=== PATIENT | female | born 1940 | race Caucasian/White ===

== ENCOUNTER 2018-08-30 23:42 | Inpatient (IN) | payer OTHER ==
[~2018-08-30] VITALS: Ht 149.9 cm; Wt 65.6 kg
[~2018-08-30 23:42] MED LIST: ACETAMINOPHEN325 M1 PO; ADULT LOW DOSE81 MG PO; ALPRAZOLAM 0.50.5 M1 PO; ALPRAZOLAM PO; ASPIRIN EC81 M1 PO; ASPIRIN325 PO; CALCIUM 600 +1 EAC5 PO; CALCIUM LACTAT650 M1 PO; CALCIUM LACTATE PO; CARISOPRODOL350 MG PO; CARVEDILOL12.5 MG PO; CIPROFLOXACIN500 M3; CLOBETASOL PROP60 G1; CORTISONE57 GM TP; CREAM FOR RASH; CYMBALTA30 MG PO; DIABETA 1.25M1.25 M1 PO; DOXYCYCLINE 10100 M1 PO; DOXYCYCLINE 10100 MG PO; DURAGESIC1 EAC2 TRANSDERM; EFFIENT10 MG PO; ENDOCET 10-3251 EACH PO; FENTANYL PA50 MCG/HR TP; FENTANYL1 EAC1; FERROUS SULFAT325 M1 PO; FISH OIL 1,0001 EAC5 PO; FISH OIL 1,001000 M1 PO; GLUCOPHAGE500 MG PO; INDAPAMIDE2.5 MG; INDAPAMIDE2.5 MG PO; K-DUR10 MEQ PO; KLOR-CON 10 ER10 MEQ PO; LEVAQUIN 750 M750 MG PO; LOPRESSOR 50 MG50 M1 PO; LORTAB 5 MG/5001 TA1 PO; LOVASTAT20; LOVASTAT20 PO; MIRALAX255 GM PO; MISC; NASAL SPRAY30 ML NASAL; PERCOCET 10-321 EACH PO; PERCOCET 5-3251 EACH PO; SEE COMMENTS; SOMA PO; TOPROL XL25 MG PO; VITAMIN D 5050000 I1 PO; XANAX 0.5 MG0.5 M1 PO; ZOCOR40 MG PO
[2018-08-30 23:43] VITALS: BP 195/75
[2018-08-30 23:55] LABS: ABSOLUTE NEUTROPHILS 5.5 thou/uL (1.4-8.2); BASOPHILS 0.6 % (0.0-2.0); EOSINOPHILS 2.8 % (0.0-3.0); HEMATOCRIT 35.2 % (37.0-47.0); HEMOGLOBIN 12.1 gm/dL (12.0-15.0); LYMPHOCYTES 30.2 % (24.0-44.0); MCH 31.6 pg (26.0-34.0); MCHC 34.3 g/dL (28.0-37.0); MCV 92.1 fL (80.0-100.0); MONOCYTES 7.4 % (1.0-8.0); PLATELET COUNT 349 thou/uL (150-400); RBC 3.83 mil/uL (4.20-5.00); RDW 13.9 % (10.5-14.5); WBC 9.4 thou/uL (4.0-11.0)
[2018-08-31] VITALS (15 sets, daily range): BP systolic 159–258; BP diastolic 52–105
[2018-08-31] MEDS ORDERED: TRAZODONE HCL50 MG PO (00:01)
[2018-08-31 00:05] LABS: ANION GAP 11 mmol/L (7-16); BUN 14 mg/dL (7-18); CALCIUM 8.8 mg/dL (8.5-10.1); CHLORIDE 105 mmol/L (98-107); CO2 24 mmol/L (21-32); CREATININE 0.6 mg/dL (0.6-1.0); GLUCOSE 170 mg/dL (74-106); POTASSIUM 3.2 mmol/L (3.5-5.1); SODIUM 140 mmol/L (136-145)
[2018-08-31 00:06] LABS: APTT 31.6 Seconds (24.5-32.8); PROTIME 10.4 Seconds (9.3-11.4)
[2018-08-31 00:15] LABS: ALBUMIN 3.2 g/dL (3.4-5.0); MAGNESIUM 1.4 mg/dL (1.8-2.4); SGOT 26 U/L (15-37); SGPT 22 U/L (30-65); TOTAL BILIRUBIN 0.3 mg/dL (<0.1-1.0); TOTAL PROTEIN 6.7 g/dL (6.4-8.2); TROPONIN-I <0.06 ng/mL (<0.06)
--- NOTE | 2018-08-31 05:16 | NUR ---
PT ARRIVED ON UNIT FROM ER AT 0130. ADMITTED WITH CHEST PAIN AND SHORTNESS OF AIR X3 DAYS--THOUGH SHORTNESS OF BREATH WITH EXERTION IS BASELINE. ALSO K WAS LOW WELL MAG AND BOTH WERE REPLACED IN ER. SHE DENIES CHEST PAIN UPON ARRIVING ON FLOOR. AMBULATING TO BATHROOM INDEPENDENTLY AND IS TOLERATING WELL. RESTING COMFORTABLY. NO NEEDS VOICED. CALL LIGHT WITHIN REACH. WILL CONTINUE TO PROVIDE FREQUENT OBSERVATION.
[2018-08-31 06:03] LABS: ANION GAP 13 mmol/L (7-16); BUN 10 mg/dL (7-18); CALCIUM 8.9 mg/dL (8.5-10.1); CHLORIDE 106 mmol/L (98-107); CHOLESTEROL 177 mg/dL (<200); CO2 25 mmol/L (21-32); CREATININE 0.6 mg/dL (0.6-1.0); GLUCOSE 175 mg/dL (74-106); HDL CHOLESTEROL 82 mg/dL (>40); LDL CHOLESTEROL 75 mg/dL (<100); MAGNESIUM 1.8 mg/dL (1.8-2.4); POTASSIUM 3.5 mmol/L (3.5-5.1); SODIUM 144 mmol/L (136-145); TC:HDL 2.2 Ratio (Not establshd); TRIGLYCERIDE 100 mg/dL (<150); VLDL 20 mg/dL (<40)
[2018-08-31 06:07] LABS: SERUM ASSESSMENT Clear
--- NOTE | 2018-08-31 08:27 | EKG ---
[place] [place] [address] ELECTROCARDIOGRAM REPORT Name: RAHEEL LAI Room #: 354-P ADM IN M.R.#: [id number] ������������������ Admission: 08/31/18 ������������������ Attend Phys: Ashwin Feng MD Discharge: ������������������ Date of : 42 Report #: [id number] ����������������������������������������������������������������� [id number] THIS REPORT FOR: //name// 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1940 Requested By: Alan Eugene Order Number: [id number] MD: Frantz Dickinson Measurements Intervals [place] Rate: 74 P: 81 W[place]: 173 QRS: -55 QRSD: 144 T: -7 QT: 451 QTc: 501 Interpretive Statements Sinus rhythm Biatrial enlargement RBBB and LAFB Left ventricular hypertrophy Artifact in lead(s) II,III,aVR,aVL,aVF,V1,V2,V4,V5,V6 No previous ECG available for comparison Electronically Signed On 08-31-2018 8:27:44 ASSET PROTECTION ASSOCIATE by Frantz Dickinson [email or web address] ��������������������������������������������� <ELECTRONICALLY SIGNED> ���������������������������������������� By: Frantz Dickinson MD ��������������������������������������������� 08/31/18 0827 [id number] rFantz Dickinson MD /EPI
--- NOTE | 2018-08-31 08:29 | EKG ---
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 : 1940 Requested By: Martha Barr Order Number: [id number] MD: Frantz Dickinson Measurements Intervals [place] Rate: 80 P: 58 NC: 152 QRS: -60 QRSD: 133 T: -15 QT: 461 QTc: 532 Interpretive Statements Sinus rhythm Probable left atrial enlargement RBBB and LAFB Left ventricular hypertrophy No previous ECG available for comparison Electronically Signed On 08-31-2018 8:29:49 DATA PROCESSING SUPERVISOR by Frantz Dickinson [email or web address] ��������������������������������������������� <ELECTRONICALLY SIGNED> ���������������������������������������� By: Frantz Dickinson MD ��������������������������������������������� 08/31/18 0829 D: [id number] 2 Frantz Dickinson MD /SURESH
--- NOTE | 2018-08-31 10:18 | 2DMMODE ---
[facility] [address] [place] [address] 2 D/M-MODE ECHOCARDIOGRAM Name: RAHEEL LAI Room #: 354-P ADM IN M.R.#: [id number] ������������� Admission: 08/31/18 ������������� Attend Phys: Ashwin Feng MD Discharge: ��� ������������� ��� Date of : 42 Date of Service: 08/31/18 1018 �� Report #: [id number] �������� ��������������������������������������������[id number] THIS REPORT FOR: //name// APPROVED REPORT Study performed: 08/31/2018 09:42:36 EXAM: Comprehensive 2D, Doppler, and color-flow Echocardiogram Patient Location: Echo lab Room #: 354 Status: routine BSA: 1.61 HR: 97 bpm BP: 196/79 mmHg Rhythm: NSR Other Information Study Quality: Adequate Indications Diabetes CAD Chest Pain Hypertension/HDD 2D Dimensions RVDd: 40.03 mm IVSd: 16.46 (7-11mm) LVOT Diam: 17.77 (18-24mm) LVDd: 41.09 mm PWd: 16.31 (7-11mm) Ascending Ao: 31.85 (22-36mm) LVDs: 23.64 (25-40mm) Aortic Root: 25.23 mm IVC: 18.00 mm Volumes Left Atrial Volume (Systole) Single Plane 4CH: 56.60 mL Single Plane 2CH: 64.92 mL LA ESV Index: 42.00 mL/m2 Aortic Valve AoV Peak Anshul.: 2.02 m/s AO Peak Gr.: 16.24 mmHg LVOT Max P.67 mmHg LVOT Max V: 1.47 m/s CHRISTINA Vmax: 1.81 cm2 Mitral Valve [facility] [address] [place] [address] 2 D/M-MODE ECHOCARDIOGRAM Name: RAHEEL LAI Room #: 354-P ADM IN .R.#: [id number] ������������� Admission: 08/31/18 ������������� Attend Phys: Ashwin Feng MD Discharge: ��� ������������� ��� Date of : 42 Date of Service: 08/31/18 1018 �� Report #: [id number] �������� ��������������������������������������������[id number] E/A Ratio: 1.4 MV Decel. Time: 114.27 ms MV E Max Anshul.: 1.37 m/s MV A Anshul.: 0.96 m/s MV PHT: 33.14 ms IVRT: 58.82 ms Pulmonary Valve PV Peak Anshul.: 1.38 m/s PV Peak Gr.: 7.71 mmHg Pulmonary Vein P Vein S: 0.38 m/s P Vein A: 0.35 m/s P Vein D: 0.63 m/s P Vein A Dur.: 138.4 msec P Vein S/D Ratio: 0.60 Tricuspid Valve TR Peak Anshul.: 3.77 m/s TR Peak Gr.: 56.90 mmHg PA Pressure: 62.00 mmHg Left Ventricle The left ventricle is normal size. There is normal LV segmental wall motion. Moderate concentric left ventricular hypertrophy. Left ventricular systolic function is hyperdynamic. LVEF is 65-70%. Moderate diastolic dysfunction is present (pseudonormal filling). Right Ventricle The right ventricle is normal size. The right ventricular systolic function is normal. Atria Left atrium is dilated. Right atrium is dilated. Aortic Valve The Aortic valve is sclerotic. Trace to mild aortic regurgitation. There is no aortic valvular stenosis. Mitral Valve The mitral valve is normal in structure. Mild to moderate mitral regurgitation. No evidence of mitral valve stenosis. Tricuspid Valve The tricuspid valve is normal in structure. There is mild tricuspid regurgitation. Estimated PAP 62 mmHg. There is moderate pulmonary hypertension. [address] [address] 2 D/M-MODE ECHOCARDIOGRAM Name: RAHEEL LAI Room #: 354-P [facility] IN M.R.#: [id number] ������������� Admission: 08/31/18 ������������� Attend Phys: Ashwin Feng MD Discharge: ��� ������������� ��� Date of : 42 Date of Service: 08/31/18 1018 �� Report #: [id number] �������� ��������������������������������������������[id number] Pulmonic Valve The pulmonary valve is normal in structure. There is no pulmonic valvular regurgitation. Great Vessels The aortic root is normal in size. IVC is normal in size and collapses >50% with inspiration. Pericardium There is no pericardial effusion. <Conclusion> The left ventricle is normal size. Moderate concentric left ventricular hypertrophy. Left ventricular systolic function is hyperdynamic. Moderate diastolic dysfunction is present (pseudonormal filling). The right ventricle is normal size. Left atrium is dilated. Right atrium is dilated. The Aortic valve is sclerotic. Trace to mild aortic regurgitation. Mild to moderate mitral regurgitation. There is mild tricuspid regurgitation. Estimated PAP 62 mmHg. There is moderate pulmonary hypertension. ��������������������������������������������� <ELECTRONICALLY SIGNED> ���������������������������������������� By: Andrew Chow MD ��������������������������������������������� 08/31/18 1018 1018 1018 Andrew Chow MD /INF
--- NOTE | 2018-08-31 11:15 | NUR ---
ELEVATED BLOOD PRESSURES THIS MORNING (222/96). GIVEN IV HYDRALAZINE AND LASIX PER ORDERS, WILL RECHECK PRESSURE FREQUENTLY. MULTIPLE EPISODES OF VOMITING, UNABLE TO GIVE PRESCRIBED LISINOPRIL DUE TO THE VOMITING. WILL CALL PHYSICIAN FOR FURTHER ORDERS.
--- NOTE | 2018-08-31 12:32 | NUR ---
assessment: CM REVIEWED CHART AND MET WITH PATIENT AT THE BEDSIDE. PT WAS ADMITTED DUE TO HAVING CHEST PAIN, CARDIOLOGY HAS BEEN CONSULTED. PT REPORTS SHE LIVES ALONE IN AN APT IN [place], [place] CALLED [facility]. PT REPORTS THAT SHE HAS TWO FLIGHTS OF STEPS TO HER APT BUT ALSO HAS AN ELEVATOR WHERE SHE DOES NOT HAVE TO USE STEPS UNLESS SHE CHOOSES TO. PT REPORTS SHE AMBULATES INDEPENDENTLY BUT DOES HAVE A CANE AT HOME IF NEEDED. PT REPORTS SHE IS INDEPENDENT WITH ADLS AND AMBULATION. PT REPORTS SHE HAS HAD HH IN THE PAST AFTER A SURGERY ABOUT A YEAR AGO BUT HAS NOT HAD IT CURRENTLY. PT DOES NOT ANTICIPATE NEEDING HH AT DISCHARGE. PT/OT EVALS ARE PENDING. CM WILL CONTINUE TO FOLLOW TO ASSIST NEEDED. PATIENTS BERNIE DEAN IS SUPPORTIVE AND WAS ALSO AT THE BEDSIDE.
--- NOTE | 2018-08-31 13:50 | NUR ---
CALL PLACED TO DR JERRY TO REPORT HIGH BLOOD PRESSURES. AWAITING RETURN PHONE CALL.
--- NOTE | 2018-08-31 14:09 | NUR ---
PATIENT TO TRANSFER TO ICU DUE TO UNCONTROLLED BLOOD PRESSURE WITH NAUSEA/VOMITING. PRESSURES RUNNING 223/98 AFTER TREATMENT WITH IV METOPROLOL, HYDRALAZINE, AND PO LISINOPRIL, COREG, AND CLONIDINE PATCH, NAUSEA IS PARTIALLY RELIEVED WITH ADMINISTERED ZOFRAN. VOIDING WELL AFTER ADMINISTRATION OF LASIX. LUNGS CLEAR-PLACED ON 2LNC DUE TO LOW SAO2 WHILE SLEEPING.
--- NOTE | 2018-08-31 14:23 | NUR ---
ORDERS RECEIVED FOR EVAL AND TREAT HOWEVER Pt TRANSFERRING DOWN TO ICU. WILL HOLD ON P.T. EVAL AND AWAIT NEW ORDERS WHEN Pt IS APPROPRIATE FOR THERAPY
--- NOTE | 2018-08-31 15:03 | NUR ---
ORDER REC'D FOR OT EVAL. PATIENT TO TRANSFER TO ICU DUE TO INCREASED BP. WILL PLACE PATIENT ON HOLD PER PROTOCOL AND AWAIT RESUME OT ORDERS WHEN PATIENT IS MEDICALLY STABLE TO PARTICIPATE IN THERAPY.
[2018-08-31 23:07] LABS: GLYCOHEMOGLOBIN (HGB A1C) 6.9 % (4.8-5.6)
[2018-09-01] VITALS (14 sets, daily range): BP systolic 104–219; BP diastolic 39–81
--- NOTE | 2018-09-01 04:30 | NUR ---
ASSUME CARE 1900. PT/VITALS STABLE. HX OF HTN, BP BEEN RUNNING ON THE LOW SIDE. CARDENE DRIP OFF AND FLUIDS STARTED. BP DIPPING DOWN TO 80s TO LOW 100s SYTOLIC, AND 30s TO 50s DIASTOLIC. PT STABLE. ADEQUATE VOIDING. REST WELL THROUGH THE NIGHT. NO FURTHER PAIN INDICATED. STB ASSIST TO BATHROOM. PROGRESSING WELL WITH POC. PLAN IS POSSIBLE DISCHARGE REGULAR UNIT TODAY. WILL CONTINUE TO MONITOR AND FOLLOW WITH POC
--- NOTE | 2018-09-01 09:13 | HC ---
[facility] [place] [address] [place] [address] CONSULTATION Name: RAHEEL LAI Room #: 236-P ADM IN M.R.#: [id number] Admission: 08/31/18 ������������������ Attend Phys: Ashwin Feng MD Discharge: ������������������ Date of : 42 Report #: [id number] THIS REPORT FOR: //name// CC: Ashwin Tripp DATE OF SERVICE: 08/31/2018 CARDIOLOGY CONSULTATION INDICATION: Chest pain. HISTORY OF PRESENT ILLNESS: This is a 78-year-old female, with a history of CAD, diabetes mellitus, hypertension and hypercholesterolemia, presenting with chest discomfort. Over the past several days, she describes a tightness in the throat area, radiating down the substernal/epigastric region. It seems to occur when she is lying down, slightly improve when she is sitting up. Her worst pain occurred last night and she presented to the ER for an evaluation. Over the past month, she has also noted a development of dyspnea on exertion. Walking up a flight of stairs or walking her dog outside will elicit dyspnea. It is also worse when she lies in a supine position, improve with sitting up. Her discomfort is not related to foods or meals. There is no history of fever, cough, chills, nausea or diarrhea. PAST MEDICAL HISTORY: CAD with stent placement at [facility] 8-9 years ago, history of diabetes mellitus, hypertension, hyperlipidemia. ALLERGIES: LATEX. MEDICATIONS AT HOME: Include simvastatin 40 mg at night, Coreg 12.5 mg twice a day, aspirin, indapamide, metformin 500 mg twice a day. SOCIAL HISTORY: Former tobacco use. FAMILY HISTORY: Negative for premature CAD. REVIEW OF SYSTEMS: A full 10-point review of systems performed, only the pertinent positives and negatives are described in the HPI. PHYSICAL EXAMINATION: VITAL SIGNS: Blood pressure is 190/80, heart rate is 80 beats per minute. GENERAL APPEARANCE: This is a well-developed, well-nourished female, in no acute distress. HEENT: Normocephalic, atraumatic. Oral mucosa moist. NECK: Supple. LUNGS: Few basilar crackles. [facility] [address] [place] [address] CONSULTATION Name: RAHEEL LAI Room #: 236-P [facility] IN M.R.#: [id number] Admission: 08/31/18 ������������������ Attend Phys: Ashwin Feng MD Discharge: ������������������ Date of : 42 Report #: [id number] CARDIAC: Regular rate and rhythm. S1, S2 positive. ABDOMEN: Soft, nontender. EXTREMITIES: No cyanosis, trace ankle edema. Chest x-ray reveals scattered interstitial prominence likely related to underlying chronic interstitial lung disease. LABORATORY VALUES: White count is 9.4, hemoglobin is 12.1. Troponin is negative x 2. Sodium is 144, creatinine is 0.6. ECG reveals sinus rhythm, LVH, bifascicular block, nonspecific ST segment abnormalities. ASSESSMENT AND PLAN: 1. Chest pain syndrome. The differential diagnosis includes gastrointestinal, ischemia, musculoskeletal. By her history, may be related to reflux disease. The 2 sets of troponin levels are negative. Given her prior history of coronary artery disease and recent complaints of dyspnea, she will need to undergo an ischemic evaluation. If the findings are unremarkable, I would consider proceeding with a gastroenterology evaluation. 2. Dyspnea on exertion. This has been relatively new onset for the past month or so. We will need a cardiac evaluation including echocardiogram and ischemic workup. Would also consider a pulmonary evaluation given the abnormal chest x-ray findings. 3. Hypertension. Continue Coreg and diuretic therapy. We will add an LYNN inhibitor. 4. Hypercholesterolemia. Continue with statins. 5. Diabetes mellitus. Continue with metformin. ��������������������������������������������� <ELECTRONICALLY SIGNED> ���������������������������������������� By: Andrew Chow MD ��������������������������������������������� 09/01/18 0913 [id number] Andrew Chow MD /nt
--- NOTE | 2018-09-01 12:44 | NUR ---
TRANSFERED TO ROOM 211 VIA WHEEL CHAIR. REPORT GIVEN TO RN TO ASSUME CARE OF PT. NO CONCERNS OR ISSUES AT THIS TIME. VITALS ARE STABLE. WILL CONTINUE TO ASSESS AND MONITOR PER NURSING
--- NOTE | 2018-09-01 16:53 | NUR ---
PT BP ELEVATED AT 219/80 AT APPROX 1630. PRN HYYDRALAZINE GIVEN AT APPROX 1640, MANUAL BP TAKEN AT APPROX 1650 ELEVATED AT 198/78. WILL RECHECK BP
--- NOTE | 2018-09-01 18:15 | NUR ---
PT ARRIVED TO UNIT AT APPROX 1235 FROM ICU BY ICU STAFF NURSE WITH ALL BELONGINGS. PT ALERT AND ORIENTED, UP AD DEE, VSS, DENIES PAIN. TELE PUT ON, ADMIT STRIP PRINTED AND DOCUMENTED. PT TO HAVE STRESS TEST THIS AFTERNOON. WILL CONTINUE TO MONITOR AND FOLLOW POC.
--- NOTE | 2018-09-01 18:40 | NUR ---
PT CONTINUES TO BE ALERT AND ORIENTED, NO C/O PAIN. BP ELEVATED--SEE PREVIOUS NOTES. VSS AT THIS TIME. PT UP AD DEE, O2 SATS WNL ON ROOM AIR. NO S/SX OF CARDIAC OR RESP DISTRESS NOTED. FAMILY AT BEDSIDE THROUGHOUT SHIFT. DENIES CONCERNS AT THIS TIME. WILL CONTINUE TO MONITOR AND FOLLOW POC.
[2018-09-02 00:11] VITALS: BP 148/49
[2018-09-02 04:35] VITALS: BP 178/59
--- NOTE | 2018-09-02 05:33 | NUR ---
ASSUMED PT CARE AT 1900. VSS. PT A&0X4. PT RESTED WELL MOST OF THE NIGHT, COMPLAINED OF GENERALIZED PAIN THIS AM AROUND 5AM, MORPHINE ADMINISTERED, BP WAS ALSO ELEVATED THIS AM AT 178/59, HYDRALIZINE GIVEN, BP CAME DOWN TO 139/59. PT HAD GOOD URINE OUTPUT OVERNIGHT, WAS ABLE TO WALK TO THE BATHROOM INDEPENDENTLY. NO COMPLAINTS OF WEEKNESS OR SOA. PT IS STABLE, RESTING IN BED, WILL CONTINUE TO MONITOR PER POC
[2018-09-02 07:36] VITALS: BP 164/54
[2018-09-02 11:28] VITALS: BP 169/61
[2018-09-02] MEDS ORDERED: LASIX 40 MG TAB40 M1 PO (11:34)
[2018-09-02] MEDS ORDERED: PEPCID20 MG PO (11:34)
[2018-09-02] MEDS ORDERED: LISINOPRIL20 MG PO (11:34)
[2018-09-02] MEDS ORDERED: CARVEDILOL25 MG PO (11:34)
[2018-09-02] MEDS ORDERED: COLACE 100 MG100 MG PO (11:34)
[2018-09-02 11:43] VITALS: BP 169/61
[2018-09-02 12:33] VITALS: BP 169/61
--- NOTE | 2018-09-02 12:52 | NUR ---
PATIENT TO DC HOME WITH HH. SHE HAS NO PREFERENCE FOR HH AGENCY. MESSAGE TO [facility] IF CAN ACCEPT FOR HH CARE. VERIFIED ADDRESS AND SCOTT NUMBER. PCP DR DOUG CALLES.
--- NOTE | 2018-09-02 12:53 | NUR ---
ASSESSMENT DOCUMENTED. PT ALERT AND ORIENTED. NSR ON TELI. SEEN BY DR. PAEZ AND DR. JERRY. ORDERS GIVEN TO DISCHARGE PT TO HOME WITH HH. DISCHARGE INSTRUCTIONS GIVEN TO PT. PT VERBERLIZED UNDERSTANDING. PT LEFT THE FACILITY ACCOPMANIED BY THE SISTERS.
== END 2018-09-02 12:55 | disposition home health service (06) | DRG 305 ==
LOC: ER 23:42 → EROBS 08-31 00:45 → 3W 08-31 00:45 → ICU 08-31 16:20 → 2N 09-01 12:53 → ENTRNSPT 09-02 12:40 → EDTRNSPTSTS 09-02 12:41 → 2N 09-02 12:55
PROVIDERS: Emergency Medicine; Nurse Practitioner Family; ADMIT Internal Medicine
DX: I16.1 Hypertensive emergency (principal); I10 Essential (primary) hypertension; E11.9 Type 2 diabetes mellitus without complications; Z96.651 Presence of right artificial knee joint; I25.10 Atherosclerotic heart disease of native coronary artery without angina pectoris; E87.6 Hypokalemia; G47.00 Insomnia, unspecified; E83.42 Hypomagnesemia; E78.5 Hyperlipidemia, unspecified; I16.0 Hypertensive urgency; Z79.82 Long term (current) use of aspirin; Z90.710 Acquired absence of both cervix and uterus; Z85.3 Personal history of malignant neoplasm of breast; Z90.11 Acquired absence of right breast and nipple; Z98.42 Cataract extraction status, left eye; Z95.5 Presence of coronary angioplasty implant and graft; Z86.718 Personal history of other venous thrombosis and embolism; Z88.8 Allergy status to other drugs, medicaments and biological substances; Z91.040 Latex allergy status; Z87.891 Personal history of nicotine dependence; Z79.899 Other long term (current) drug therapy; R07.9 Chest pain, unspecified
CPT/HCPCS: 10078; 10081; 10203